=== PATIENT | male | born 1955 | race Caucasian/White ===

== ENCOUNTER 2023-01-21 14:04 | Emergency (ER) | payer OTHER, MEDICARE ==
[~2023-01-21] VITALS: Ht 162.6 cm; Wt 285.0 kg
[2023-01-21 14:50] VITALS: BP 173/131; PULSE 100; RESP 18; TEMP 97.9; O2SAT 95
== END 2023-01-21 14:52 | disposition home or self-care (01) ==
LOC: ER 14:04
DX: S00.31XA Abrasion of nose, initial encounter (principal); S80.212A Abrasion, left knee, initial encounter; S80.211A Abrasion, right knee, initial encounter; W18.39XA Other fall on same level, initial encounter; Y93.89 Activity, other specified; Y92.89 Other specified places as the place of occurrence of the external cause; Y99.8 Other external cause status
CPT/HCPCS: 99284

== ENCOUNTER 2023-08-10 10:33 | Day surgery (SDC) | payer OTHER ==
[2023-08-10] VITALS (9 sets, daily range): BP systolic 154–185; BP diastolic 109–121; PULSE 75–111; RESP 12–14; TEMP 98; O2SAT 98–99
[~2023-08-10] VITALS: Ht 165.1 cm; Wt 126.9 kg
[2023-08-10] MEDS ORDERED: ROSU10TA28 PO (11:01)
[2023-08-10] MEDS ORDERED: OMEP40CA21 PO (11:02)
[2023-08-10] MEDS ORDERED: METF-436 PO (11:02)
[2023-08-10] MEDS ORDERED: CARB200C7 PO (11:03)
[2023-08-10] MEDS ORDERED: LISI40TA13 PO (11:03)
[2023-08-10] MEDS ORDERED: METO100T7 PO (11:05)
[2023-08-10] MEDS ORDERED: normal saline 1000ml 1,000 ML IV PRN (11:05)
[2023-08-10] MEDS ORDERED: WARF-55 PO (11:06)
[2023-08-10] MEDS ORDERED: DILT-36 PO (11:06)
[2023-08-10] MEDS ORDERED: SPIR25TA5 PO (11:07)
[2023-08-10] MEDS ORDERED: HYDR25TA4 PO (11:07)
[2023-08-10] MEDS ORDERED: FLO0.4C PO (11:08)
[2023-08-10] MEDS ORDERED: AMI200T PO (11:08)
[2023-08-10] MEDS ORDERED: QUET-1 PO (11:09)
[2023-08-10] MEDS ORDERED: HYDR-3686 PO (11:09)
[2023-08-10] MEDS ORDERED: DIPH25CA83 PO (11:10)
[2023-08-10] MEDS ORDERED: CHOL10008 PO (11:10)
[2023-08-10 11:56] LABS: BASOPHILS # (AUTO) 0.1 X10'3 (0-0.2); BASOPHILS % (AUTO) 0.7 % (0-1); EOSINOPHILS # (AUTO) 0.2 X10'3 (0-0.9); EOSINOPHILS % (AUTO) 1.7 % (0-6); HEMATOCRIT 39.2 % (42.0-52.0); HEMOGLOBIN 12.4 g/dl (14.0-17.9); LYMPHOCYTES # (AUTO) 1.6 X10'3 (1.1-4.8); MEAN CORPUSCULAR HEMOGLOBIN 25.5 PG (27.0-31.0); MEAN CORPUSCULAR HGB CONC 31.5 g/dL (33.0-36.5); MONOCYTES # (AUTO) 0.7 X10'3 (0-0.9); NEUTROPHILS # (AUTO) 6.5 X10'3 (1.8-7.7); NEUTROPHILS % (AUTO) 71.6 % (42-75); PLATELET COUNT 354 X10'3 (140-440); RED BLOOD COUNT 4.84 X10'6 (4.70-6.10); RED CELL DISTRIBUTION WIDTH 19.7 % (11.5-14.5); WHITE BLOOD COUNT 9.1 X10'3 (4.5-11.0)
[2023-08-10 12:16] LABS: INR 1.8 INR; PROTHROMBIN TIME 18.4 SECONDS (9.0-12.0)
[2023-08-10 12:18] LABS: ANISOCYTOSIS 2+; PLATELET ESTIMATE NORMAL
[2023-08-10 12:23] LABS: ALBUMIN 4.1 G/DL (3.4-5.0); ANION GAP 11 (8-16); BLOOD UREA NITROGEN 20 MG/DL (7-18); CALCIUM 9.9 MG/DL (8.5-10.1); CHLORIDE 92 MMOL/L (99-107); CREATININE 0.91 MG/DL (0.60-1.10); GLUCOSE 120 MG/DL (70-104); POTASSIUM 4.2 MMOL/L (3.5-5.1); SODIUM 131 MMOL/L (135-145); TOTAL CARBON DIOXIDE 28.4 MMOL/L (24-32); eCRCL 70 ML/MIN; eGFR 84 ML/MIN
[2023-08-10] MEDS: fentaNYL/PF 50MCG/1 ML 2ML syringe IV ONE (12:53)
[2023-08-10] MEDS: MIDAZolam 1mg/ml 10ml vial IV ONE (12:53)
== END 2023-08-10 14:15 | disposition home or self-care (01) ==
LOC: SSTAY O 10:33
PROVIDERS: ATTEND Student in an Organized Health Care Education/Training Program
DX: I48.91 Unspecified atrial fibrillation (principal); I10 Essential (primary) hypertension; E11.9 Type 2 diabetes mellitus without complications; E78.00 Pure hypercholesterolemia, unspecified; I48.92 Unspecified atrial flutter; I42.0 Dilated cardiomyopathy; E66.9 Obesity, unspecified; F31.9 Bipolar disorder, unspecified; K21.9 Gastro-esophageal reflux disease without esophagitis; G47.33 Obstructive sleep apnea (adult) (pediatric); Z79.01 Long term (current) use of anticoagulants; Z79.2 Long term (current) use of antibiotics; Z79.84 Long term (current) use of oral hypoglycemic drugs; Z79.899 Other long term (current) drug therapy; Z68.42 Body mass index [BMI] 45.0-49.9, adult
CPT/HCPCS: 36415; 80048; 82948; 85025; 85610; 92960; 93005; J2250; J3010; J7030; 85008; A4620; A6258; A6402; A6449